=== PATIENT | female | born 1945 | race Caucasian/White ===

== ENCOUNTER 2017-06-25 09:04 | Inpatient (IN) | payer MEDICARE, MEDICAID, SELFPAY ==
[2017-06-25] VITALS (11 sets, daily range): BP systolic 104–159; BP diastolic 49–85; PULSE 53–75; RESP 14–17; TEMP 36.2–37.3; O2SAT 93–97; BMI 35.1
[2017-06-25] MEDS: Celecoxib 200 MG Capsule 400 MG PO (10:01)
[2017-06-25] MEDS: Acetaminophen 500 MG Tablet 1000 MG PO ×3 (10:02→21:47)
[2017-06-25] MEDS: oxyCODONE HCl Cr 10 MG Tablet PO (10:02)
[2017-06-25 10:10] LABS: Thyroid Stim Hormone (TSH) 3.12 uIU/mL (0.358-3.74)
[2017-06-25] MEDS: Cefazolin 2 GM in 0.9% Normal Saline 100 ML IV (11:17)
[2017-06-25 12:50] LABS: M R Staph aureus DNA By PCR Negative (Negative); Probe Check PASS; Specimen Processing Control PASS
--- NOTE | 2017-06-25 13:04 | RAD_ITS ---
STUDY: X-RAY - LEFT KNEE REASON FOR EXAM: Female, 71 years old. Post op. TECHNIQUE: 2 views of the knee. COMPARISON: None. FINDINGS: Normal density of the visualized distal femur. Normal density of the visualized proximal tibia and fibula. Normal proximal tibiofibular articulation. There is no demonstrated fracture. The patient has undergone a left total knee arthroplasty. Metal prostheses overlying the femoral condyles and tibial plateau appear well seated, and in anatomic alignment. There is irregularity along the posterior aspect of the patella related to a radiolucent prosthesis at that site. Gas lucencies in the peripatellar tissues are consistent with the recent surgery. There are numerous metal skin howie along the anterior midline. RAD/Knee 1 or 2 Views IMPRESSION: Status post left total knee arthroplasty. Electronically Signed: Helio Bailey MD at 17:37 EST , Service support ,
[2017-06-25] MEDS: Scopolamine 1mg/72hr Patch 1 PATCH TD (13:56)
[2017-06-25] MEDS: Lactated Ringers 1,000 ML 999 ML IV (14:29)
--- NOTE | 2017-06-25 15:35 | PCM.OPRPT ---
Report of Operation Date of Procedure: 06/25/17 Pre-Operative Diagnosis: Left knee primary osteoarthritis Post-Operative Diagnosis: Left knee primary osteoarthritis Surgery/Procedure Performed:: Left total knee replacement, cruciate retaining Description of Surgical Findings:: We will knee with good patella tracking professor of food biochemistry: Víctor Vásquez Type of Anesthesia:: Spinal Anesthesiologist: Tima Ruiz Special Medications: 2 g Ancef, 1 g TXA at incision, 1 g TXA closure, 10 mg Decadron, joint cocktail (5 mg Duramorph, 30 mL of 0.5% Ropivicaine, 1000 units of epinephrine, 30 mg of Toradol) Specimen's removed: Bony cuts Estimated Blood Loss (mL): 30 mL Fluids Replaced: 1300 mL crystalloid Description of Procedure: Implants used: 1. Superior size 3 triathlon cruciate retaining distal femoral component 2. Carlin size 3 universal tibial baseplate 3. Carlin X3 11 mm CS polyethylene 4. Carlin X3 29 mm asymmetric patella Brief history operative indications: 71-year-old f with history of left knee osteoarthritis with radiographic findings with loss of joint space, osteophyte formation and subchondral sclerosis. Failed conservative measures as mentioned in the H&P. Discussion of total knee arthroplasty as well as risk and benefits were discussed the patient including but not limited to blood loss, DVTs, PEs, neurovascular damage, general risk of anesthesia including loss of life, and stiffness or instability were discussed with patient. Patient demonstrated understanding and was able to sign informed consent. Procedure: On the date of procedure patient's left lower extremity was marked in the preoperative area. The patient was then taken back to the operating room where the patient was placed on the table in the supine position. All bony prominences were identified a well-padded. Anesthesia assumed control of the C-spine and airway and remained controlled throughout the remainder of the procedure. A tourniquet was placed on the left upper thigh and the leg was prepped in a sterile fashion. The surgeon then scrubbed at this time .Upon reentering the room left lower extremity was draped in a standard orthopedic fashion. A timeout was then called and everyone agreed upon the side, the site, the procedure to be performed, patient's identity and antibiotics given. Esmarch bandage was used to exsanguinate the extremity and the tourniquet was placed up to 250 mmHg with the knee in flexion. A midline skin incision was made and sharp dissection was taken down through skin subcutaneous tissue and fat. The standard medial parapatellar incision was made and the patella was subluxed laterally. The standard deep MCL release was done and the fat pad was resected. Next our attention was directed to the femur. Navigation pins were placed, navigation was registered. The distal femoral cutting block was pinned into place and 9 mm of distal femur resection was completed. The distal femoral cut was verified with navigation. The knee was then placed in deep flexion in the standard [email or web address] sizing guide was used to place the femoral component in 3? external rotation based on the posterior condyles. A size 3 4-in-1 cutting block was selected and pinned into place. The anterior cut was then made and checked for notching. The subsequent anterior chamfer cuts, posterior condylar cuts and posterior chamfer cuts were made while ensuring the MCL and LCL were protected. Our attention was then turned to the tibia where the navigation pins were placed, navigation was registered. [employer] tibial cutting guide was used to make the appropriate tibial cut 90 degrees from the mechanical axis. Navigation was then used to verify the cut. A size 3 tibial base plate was selected. the knee was flexed to 90 degrees and the soft tissues and posterior osteophytes were removed from the joint. 40 cc of the periarticular injection was injected into the posterior medial corner of the joint. The appropriate trials were then placed on the femur and tibia. A trial polyethylene was trialed to ensure proper balancing and stability of the knee. Patella tracking, was then verified and corrected appropriately as needed. The appropriate tibial internal rotation was then marked with a bovie. Our attention was then directed to the patella. The patella was everted and a flat resection was made. The lug holes were drilled and the patella trial was placed. Patellar tracking was checked and deemed appropriate. Once we were happy lug holes were drilled for the femur and trial components were removed. the tibia was subluxed and pinned into place and the keel was punched and the canal was reamed. Final components were verified and opened, and cement was mixed in a vacuum. Superior Simplex cement was used. The wound was copiously irrigated with normal saline. When the cement was ready the components were cemented into place starting with the tibia, femur and finally the patella. The trial poly component was placed and the knee was placed in full extension. All excess cement was removed in the process. Once the cement had cured the tracking, alignment and balance were verified and a size 11 mm polyethylene component was placed. Once the final components were placed the wound was copiously irrigated with normal saline solution and the periarticular injection was given. The wound was closed in a layer tang fashion using #1 vicryl interrupted sutures for the arthrotomy, 2-0 interrupted Vicryl suture for the subcuticular layer and howie for final skin closure. A sterile compressive dressing was then placed. The patient was then awakened from anesthesia, transferred to the [facility] and transferred to the PACU for recovery. Post op plan DVT ppx: ASA 325mg, thigh high compression stockings Follow up: in office in 2 weeks for wound check PT: to start POD #0 at hospital, outpatient PT should be arranged My physician assistant pressman was a vital part of this case. He was important in appropriate retraction during the case, and protection of soft tissues during bony cuts. His intimate knowledge of the case and my steps aided in safe and expedient completion of the procedure as well as appropriate position of the leg during the case. He was also vital in assisting with closure under my direct supervision. Grafts/Implants Used: Carlin triathlon total knee - Complications None - Admit VTE Documentation VTE Present on Admission: No VTE Mechan Device Prophylaxis: SCD's, Thigh High SEBAS Hose VTE Pharm Prophylaxis ordered?: Yes
--- NOTE | 2017-06-25 15:38 | OP.PCM_ITS ---
Report of Operation Date of Procedure: 06/25/17 Pre-Operative Diagnosis: Left knee primary osteoarthritis Post-Operative Diagnosis: Left knee primary osteoarthritis Surgery/Procedure Performed:: Left total knee replacement, cruciate retaining Description of Surgical Findings:: We will knee with good patella tracking anesthesiology physician: Víctor Vásquez Type of Anesthesia:: Spinal Anesthesiologist: Tima Ruiz Special Medications: 2 g Ancef, 1 g TXA at incision, 1 g TXA closure, 10 mg Decadron, joint cocktail (5 mg Duramorph, 30 mL of 0.5% Ropivicaine, 1000 units of epinephrine, 30 mg of Toradol) Specimen's removed: Bony cuts Estimated Blood Loss (mL): 30 mL Fluids Replaced: 1300 mL crystalloid Description of Procedure: Implants used: 1. Elaine size 3 triathlon cruciate retaining distal femoral component 2. Carlin size 3 universal tibial baseplate 3. Carlin X3 11 mm CS polyethylene 4. Carlin X3 29 mm asymmetric patella Brief history operative indications: 71-year-old f with history of left knee osteoarthritis with radiographic findings with loss of joint space, osteophyte formation and subchondral sclerosis. Failed conservative measures as mentioned in the H&P. Discussion of total knee arthroplasty as well as risk and benefits were discussed the patient including but not limited to blood loss, DVTs, PEs, neurovascular damage , general risk of anesthesia including loss of life, and stiffness or instability were discussed with patient. Patient demonstrated understanding and was able to sign informed consent. Procedure: On the date of procedure patient's left lower extremity was marked in the preoperative area. The patient was then taken back to the operating room where the patient was placed on the table in the supine position. All bony prominences were identified a well-padded. Anesthesia assumed control of the C- spine and airway and remained controlled throughout the remainder of the procedure. A tourniquet was placed on the left upper thigh and the leg was prepped in a sterile fashion. The surgeon then scrubbed at this time .Upon reentering the room left lower extremity was draped in a standard orthopedic fashion. A timeout was then called and everyone agreed upon the side, the site, the procedure to be performed, patient's identity and antibiotics given. Esmarch bandage was used to exsanguinate the extremity and the tourniquet was placed up to 250 mmHg with the knee in flexion. A midline skin incision was made and sharp dissection was taken down through skin subcutaneous tissue and fat. The standard medial parapatellar incision was made and the patella was subluxed laterally. The standard deep MCL release was done and the fat pad was resected. Next our attention was directed to the femur. Navigation pins were placed, navigation was registered. The distal femoral cutting block was pinned into place and 9 mm of distal femur resection was completed. The distal femoral cut was verified with navigation. The knee was then placed in deep flexion in the standard [employer] sizing guide was used to place the femoral component in 3? external rotation based on the posterior condyles. A size 3 4-in-1 cutting block was selected and pinned into place. The anterior cut was then made and checked for notching. The subsequent anterior chamfer cuts, posterior condylar cuts and posterior chamfer cuts were made while ensuring the MCL and LCL were protected. Our attention was then turned to the tibia where the navigation pins were placed , navigation was registered. [employer] tibial cutting guide was used to make the appropriate tibial cut 90 degrees from the mechanical axis. Navigation was then used to verify the cut. A size 3 tibial base plate was selected. the knee was flexed to 90 degrees and the soft tissues and posterior osteophytes were removed from the joint. 40 cc of the periarticular injection was injected into the posterior medial corner of the joint. The appropriate trials were then placed on the femur and tibia. A trial polyethylene was trialed to ensure proper balancing and stability of the knee. Patella tracking, was then verified and corrected appropriately as needed. The appropriate tibial internal rotation was then marked with a bovie. Our attention was then directed to the patella. The patella was everted and a flat resection was made. The lug holes were drilled and the patella trial was placed. Patellar tracking was checked and deemed appropriate. Once we were happy lug holes were drilled for the femur and trial components were removed. the tibia was subluxed and pinned into place and the keel was punched and the canal was reamed. Final components were verified and opened, and cement was mixed in a vacuum. [employer] cement was used. The wound was copiously irrigated with normal saline. When the cement was ready the components were cemented into place starting with the tibia, femur and finally the patella. The trial poly component was placed and the knee was placed in full extension. All excess cement was removed in the process. Once the cement had cured the tracking, alignment and balance were verified and a size 11 mm polyethylene component was placed. Once the final components were placed the wound was copiously irrigated with normal saline solution and the periarticular injection was given. The wound was closed in a layer tang fashion using #1 vicryl interrupted sutures for the arthrotomy, 2-0 interrupted Vicryl suture for the subcuticular layer and howie for final skin closure. A sterile compressive dressing was then placed. The patient was then awakened from anesthesia, transferred to the [facility] and transferred to the PACU for recovery. Post op plan DVT ppx: ASA 325mg, thigh high compression stockings Follow up: in office in 2 weeks for wound check PT: to start POD #0 at hospital, outpatient PT should be arranged My physician executive staff assistant was a vital part of this case. He was important in appropriate retraction during the case, and protection of soft tissues during bony cuts. His intimate knowledge of the case and my steps aided in safe and expedient completion of the procedure as well as appropriate position of the leg during the case. He was also vital in assisting with closure under my direct supervision. Grafts/Implants Used: Elaine triathlon total knee - Complications None - Admit VTE Documentation VTE Present on Admission: No VTE Mechan Device Prophylaxis: SCD's, Thigh High SEBAS Hose VTE Pharm Prophylaxis ordered?: Yes
--- NOTE | 2017-06-25 16:32 | PCM.PROGNOTE ---
Subjective: Patient seen and examined. Resting in room in no acute distress. Patient underwent left total knee replacement due to osteoarthritis with Dr. Mattson. Hospitalist services consulted for medical management. Patient currently complains of pain 7 out of 10. Nurse in room administering pain medication. Patient has a history of right hip fracture requiring surgical intervention. She was discharged at that time (03/2016) to SNF and currently resides at [facility]. Her other past medical history includes hyperthyroidism, hyperlipidemia, depression, anxiety disorder, GERD. Patient's vitals are stable postoperatively. Oxygen stable on room air. Sensory intact to right lower extremity. Patient denies nausea, vomiting. Denies other complaints besides left lower extremity pain. - Physical Exam General: Alert, Oriented x3, Cooperative, No apparent distress HEENT: Atraumatic, PERRLA, EOMI, Normocephalic Neck: Supple, No JVD, Negative Carotid Bruits Lungs: Clear to auscultation, Diminished Cardiovascular: Regular rate, Regular Rhythm, Normal S1, Normal S2, No murmurs Abdomen: Bowel Sounds Present, Soft, Non Tender, Non-Distended Extremities: No clubbing, No cyanosis, No edema, Capillary Refill Less than 3 Seconds Skin: No rashes, No breakdown, - - Left lower extremity postop dressing intact Musculoskeletal: No Tenderness to Palpation of Joints or Extremities Neurological: Cranial nerves II-XII grossly intact, Neuro grossly intact Psych/Mental Status: Appropriate, Flat Affect Vital Signs Temp Pulse Resp BP Pulse Ox 97.3 F L 64 16 144/70 H 96 06/25/17 15:27 06/25/17 15:27 06/25/17 15:27 06/25/17 15:27 06/25/17 15:27 Oxygen Delivery Method Room Air Weight: 78.925 kg Body Mass Index (BMI) 35.1 Finger Stick Blood Glucose 150 Intake and Output for Last 24 Hours 06/23/17 06/24/17 06/25/17 23:59 23:59 23:59 Intake Total 1999 Balance 1999 Laboratory Tests Past 24 Hrs 06/25/17 06/25/17 09:40 09:40 TSH 3.12 MRSA (PCR) Negative Assessment/Plan 1. Status post right total knee arthroplasty secondary to osteoarthritis-surgery by Dr. Mattson 06/25/17. PT/OT. Continue PRN pain regimen. Patient has history of right hip fracture requiring surgical intervention. Continue calcium/vitamin D supplementation. Continue aspirin 325 p.o. twice daily. Monitor CBC. Incentive spirometer. 2. Hyperthyroidism- Continue PTU regimen. TSH 3.1. 3. Hyperlipidemia-continue statin. 4. Depression/anxiety-continue home bupropion, alprazolam, Seroquel regimen, Cymbalta. 5. GERD-continue famotidine. DVT prophylaxis-SCDs. Aspirin 325 p.o. twice daily. This patient was seen by TOD Stahl under the supervision of Dr. Lee.
[2017-06-25] MEDS: oxyCODONE 5 MG Tablet PO ×2 (16:38→21:47)
[2017-06-25] MEDS: Lactated Ringers 1,000 ML 125 ML IV ×2 (16:39→21:52)
--- NOTE | 2017-06-25 16:39 | PN_ITS ---
Subjective: Patient seen and examined. Resting in room in no acute distress. Patient underwent left total knee replacement due to osteoarthritis with Dr. Mattson. Hospitalist services consulted for medical management. Patient currently complains of pain 7 out of 10. Nurse in room administering pain medication. Patient has a history of right hip fracture requiring surgical intervention. She was discharged at that time (03/2016) to SNF and currently resides at [facility]. Her other past medical history includes hyperthyroidism, hyperlipidemia, depression, anxiety disorder, GERD. Patient's vitals are stable postoperatively. Oxygen stable on room air. Sensory intact to right lower extremity. Patient denies nausea, vomiting. Denies other complaints besides left lower extremity pain. - Physical Exam General: Alert, Oriented x3, Cooperative, No apparent distress HEENT: Atraumatic, PERRLA, EOMI, Normocephalic Neck: Supple, No JVD, Negative Carotid Bruits Lungs: Clear to auscultation, Diminished Cardiovascular: Regular rate, Regular Rhythm, Normal S1, Normal S2, No murmurs Abdomen: Bowel Sounds Present, Soft, Non Tender, Non-Distended Extremities: No clubbing, No cyanosis, No edema, Capillary Refill Less than 3 Seconds Skin: No rashes, No breakdown, - - Left lower extremity postop dressing intact Musculoskeletal: No Tenderness to Palpation of Joints or Extremities Neurological: Cranial nerves II-XII grossly intact, Neuro grossly intact Psych/Mental Status: Appropriate, Flat Affect Vital Signs Temp Pulse Resp BP Pulse Ox 97.3 F L 64 16 144/70 H 96 06/25/17 15:27 06/25/17 15:27 06/25/17 15:27 06/25/17 15:27 06/25/17 15:27 Oxygen Delivery Method Room Air Weight: 78.925 kg Body Mass Index (BMI) 35.1 Finger Stick Blood Glucose 150 Intake and Output for Last 24 Hours 06/23/17 06/24/17 06/25/17 23:59 23:59 23:59 Intake Total 1999 Balance 1999 Laboratory Tests Past 24 Hrs 06/25/17 06/25/17 09:40 09:40 TSH 3.12 MRSA (PCR) Negative Assessment/Plan 1. Status post right total knee arthroplasty secondary to osteoarthritis- surgery by Dr. Mattson 06/25/17. PT/OT. Continue PRN pain regimen. Patient has history of right hip fracture requiring surgical intervention. Continue calcium /vitamin D supplementation. Continue aspirin 325 p.o. twice daily. Monitor CBC. Incentive spirometer. 2. Hyperthyroidism- Continue PTU regimen. TSH 3.1. 3. Hyperlipidemia-continue statin. 4. Depression/anxiety-continue home bupropion, alprazolam, Seroquel regimen, Cymbalta. 5. GERD-continue famotidine. DVT prophylaxis-SCDs. Aspirin 325 p.o. twice daily. This patient was seen by TOD Stahl under the supervision of Dr. Lee.
[2017-06-25] MEDS: Aspirin 325 MG Tablet PO (16:40)
[2017-06-25] MEDS: Cefazolin 1 GM/50 ML BAG IV (18:59)
[2017-06-25] MEDS: Senna/Docusate Sodium 1 Tablet 2 TABLET PO (21:47)
[2017-06-25] MEDS: Atorvastatin Calcium 40 MG Tablet PO (21:47)
[2017-06-25] MEDS: QUEtiapine 100 MG Tablet PO (21:47)
[2017-06-25] MEDS: ALPRAZolam 0.5 MG Tablet PO (21:48)
[2017-06-26] MEDS: Cefazolin 1 GM/50 ML BAG IV (03:38)
[2017-06-26] MEDS: oxyCODONE 5 MG Tablet PO ×5 (03:42→23:05)
[2017-06-26 05:00] VITALS: BP 133/80; PULSE 57; RESP 16; TEMP 37; O2SAT 95
[2017-06-26] MEDS: Acetaminophen 500 MG Tablet 1000 MG PO ×3 (06:40→21:00)
[2017-06-26 06:54] LABS: Hematocrit 35.7 % (37-47); Hemoglobin 11.3 g/dl (12.0-15.0); Mean Corp Hgb Conc 31.7 g/gl (32-36); Mean Corpuscular Hgb 30.6 pg (27.0-32.0); Mean Corpuscular Volume 96.7 fL (81-99); Mean Platelet Vol. 9.8 fl (6.2-12.0); Platelet Count 249 K/mm3 (150-450); RBC Distribution Width CV 13.7 % (11.6-14.6); RBC Distribution Width SD 46.9 fl (35.1-43.9); Red Blood Count 3.69 M/mm3 (4.2-5.4); Scan Indicated on CBC? Y/N NO
[2017-06-26 07:05] LABS: Anion Gap 10 (5-15); BUN 17 mg/dL (7-18); BUN/Creat Ratio 19.7 RATIO (10-20); Calcium,Total 8.7 mg/dL (8.5-10.1); Chloride 110 mmol/L (98-107); Creatinine, Serum 0.86 mg/dL (0.55-1.02); EST Glomerular Filtration Rate 69 mL/min (>60); Est Glom Filt Rate - Afr Amer 83 mL/min (>60); Estimated Creatinine Clearance 73.67 ml/min; Glucose 126 mg/dL (74-106); Potassium 4.7 mmol/L (3.5-5.1); Sodium Level 144 mmol/L (136-145)
--- NOTE | 2017-06-26 08:03 | PN_ITS ---
Subjective: Follow-up status post knee surgery: It was seen and examined. No acute events overnight. Complains of extreme anxiety. States she is on Xanax. Feels anxiety is not controlled. DEnies no shortness of breath or dizziness or chills. She rates her pain at 7 out of 10. Rest of review of systems was negative. Vitals/I&O's: Vital Signs Temp Pulse Resp BP Pulse Ox 98.6 F 57 L 16 133/80 H 95 06/26/17 05:00 06/26/17 05:00 06/26/17 05:00 06/26/17 05:00 06/26/17 05:00 Oxygen Delivery Method Room Air Weight: 78.925 kg Body Mass Index (BMI) 35.1 Finger Stick Blood Glucose 150 Intake and Output for Last 24 Hours 06/24/17 06/25/17 06/26/17 23:59 23:59 23:59 Intake Total 3087 / 3087 1580 / 1580 Output Total 1000 / 1000 900 / 900 Balance 2087 / 2087 680 / 680 General: Alert, Oriented x3, Cooperative, No apparent distress HEENT: Atraumatic, PERRLA, EOMI, Normocephalic Oral: Moist Mucosa Neck: Supple, Negative Carotid Bruits Lungs: Clear to auscultation, Normal air movement Cardiovascular: Regular rate, Regular Rhythm, Normal S1, Normal S2, No murmurs Abdomen: Bowel Sounds Present, Soft, Non Tender, Non-Distended, No Hepato- splenomegaly Extremities: No edema, - - Cooling wrap to the left knee Skin: No rashes, No breakdown Musculoskeletal: No Tenderness to Palpation of Joints or Extremities Neurological: Cranial nerves II-XII grossly intact Psych/Mental Status: Normal Affect, Appropriate Laboratory Results 06/25/17 09:40: TSH 3.12 06/25/17 09:40: MRSA (PCR) Negative 06/26/17 06:35: WBC 9.0, RBC 3.69 L, Hgb 11.3 L, Hct 35.7 L, MCV 96.7, MCH 30.6 , MCHC 31.7 L, RDW 13.7, RDW Differential 46.9 H, Plt Count 249, MPV 9.8 06/26/17 06:35: Sodium 144, Potassium 4.7, Chloride 110 H, Carbon Dioxide 24.0, Anion Gap 10, BUN 17, Creatinine 0.86, Estim Creat Clear Calc 73.67, Est GFR ( MDRD) Af Amer 83, Est GFR (MDRD) Non-Af 69, BUN/Creatinine Ratio 19.7, Glucose 126 H, Calcium 8.7 Current Medications Acetaminophen (Tylenol) 1,000 mg PO Q8 [facility] Last Admin: 06/26/17 06:40 Dose: 1,000 mg Al Hydroxide/Mg Hydroxide (Mylanta Ii) 30 ml PO Q4H PRN PRN PRN Reason: gastric distress Alprazolam (Xanax) 0.5 mg PO BID [facility] Last Admin: 06/25/17 21:48 Dose: 0.5 mg [facility]) [facility] Last Admin: 06/25/17 16:40 Dose: 325 mg Atorvastatin Calcium (Lipitor) 40 mg PO QHS [facility] Last Admin: 06/25/17 21:47 Dose: 40 mg Bupropion HCl (Wellbutrin Sr) 150 mg PO DAILY [facility] Bupropion HCl (Wellbutrin Sr) 200 mg PO QHS [facility] Last Admin: 06/25/17 21:46 Dose: 200 mg Calcium Carbonate (Os-Gokul 500) 1,000 mg PO DAILY@0800 [facility] Cholecalciferol (Vitamin D) 2,[facility] Duloxetine HCl (Cymbalta) 60 mg PO DAILY [facility] Famotidine (Pepcid) 20 mg PO DAILY [facility] Furosemide (Lasix) 40 mg PO DAILY [facility] Ketorolac Tromethamine (Toradol) 15 mg IV Q6H PRN PRN PRN Reason: MILD-MOD PAIN (1-5/10) Morphine Sulfate (Morphine) 2 - 4 mg IV Q2H PRN PRN PRN Reason: SEVERE PAIN (6-10/10) Last Admin: 06/25/17 15:38 Dose: 2 mg Nutritional Formula (Lactose Free) (Ensure Clear) 120 ml PO TIDCM [facility] Last Admin: 06/25/17 16:44 Dose: 120 ml Ondansetron HCl (Zofran) 4 mg IV Q8H PRN PRN PRN Reason: NAUSEA Oxycodone HCl (Oxyir) 5 - 10 mg PO Q4H PRN PRN PRN Reason: MOD-SEVERE PAIN (4-10/10) Last Admin: 06/26/17 03:42 Dose: 10 mg Polyethylene Glycol (Miralax) 17 gm PO DAILY [facility] Promethazine HCl (Phenergan (Ll)) 12.5 mg IM Q6H PRN PRN; Protocol PRN Reason: NAUSEA/VOMITING Propylthiouracil (Propylthiouracil, Ptu) 100 mg PO BID [facility] Last Admin: 06/25/17 21:47 Dose: 100 mg Quetiapine Fumarate (Seroquel) 100 mg PO BID [facility] Last Admin: 06/25/17 21:47 Dose: 100 mg Senna/Docusate Sodium (Senokot-S, Poppy-Colace) 2 tablet PO BID [facility] Last Admin: 06/25/17 21:47 Dose: 2 tablet Sodium Chloride () 5 - 30 ml IV UD PRN PRN Reason: SALINE FLUSH Assessment/Plan 1. Status post right total knee arthroplasty, POD #1, pain is fairly controlled , on morphine and oxycodone no active management by orthopedics, PT and OT to evaluate and treat. 2. Hyperthyroidism, on PTU 3. Hyperlipidemia, on statin. 4. Depression/anxiety, on home bupropion, alprazolam, Seroquel regimen, Cymbalta. 5. GERD on famotidine. 6. DVT prophylaxis -Aspirin 325 p.o. twice daily. Code Visit Inpatient E&M: 05897 [facility] Hosp L2
[2017-06-26 08:37] VITALS: BP 97/51; PULSE 63; RESP 18; TEMP 37.3; O2SAT 100
[2017-06-26] MEDS: Calcium (Elemental) 500 MG Tablet 1000 MG PO (08:42)
[2017-06-26] MEDS: Furosemide 40 MG Tablet PO (08:43)
[2017-06-26] MEDS: Aspirin 325 MG Tablet PO ×2 (08:43→17:15)
[2017-06-26] MEDS: Senna/Docusate Sodium 1 Tablet 2 TABLET PO ×2 (08:44→20:59)
[2017-06-26] MEDS: DULoxetine Hcl 60 MG Capsule PO (08:44)
[2017-06-26] MEDS: Famotidine 20 MG Tablet PO (08:44)
[2017-06-26] MEDS: Polyethylene Glycol 3350 17 GM PACKET PO (08:44)
[2017-06-26] MEDS: QUEtiapine 100 MG Tablet PO ×2 (08:49→21:00)
[2017-06-26] MEDS: ALPRAZolam 0.5 MG Tablet PO ×2 (08:49→21:01)
[2017-06-26] MEDS: 0.9% NaCl Peripheral Flush Adult/Peds IV (08:56)
--- NOTE | 2017-06-26 10:06 | PCM.PN.ORT ---
Subjective: The patient was sitting in chair upon examination. Patient denies any chest pain, shortness of breath, dizziness, lightheadedness, nausea or vomiting, or calf pain. No adverse overnight events. Patient states she has increased pain in the left knee. Patient reports her pain is 7 out of 10 currently. When she takes her pain medications it goes down to a 3-4 out of 10. Patient currently resides at [facility] in [facility]. She is wishing to go to [facility]. Objective: Vital signs stable and afebrile. Last blood pressure reading was 97/51. Patient is able to plantarflex and dorsiflex actively. Sensation is intact to light touch to saphenous, sural, superficial and deep peroneal, and tibial distribution. Dressing is clean dry and intact. Distal dressing with minimal drainage Negative Homans bilaterally, negative signs and symptoms of DVT. - Physical Exam General: Alert, Oriented x3, Cooperative, No apparent distress Vital Signs Temp Pulse Resp BP Pulse Ox 99.1 F 63 18 97/51 L 100 06/26/17 08:37 06/26/17 08:37 06/26/17 08:37 06/26/17 08:37 06/26/17 08:37 Oxygen Delivery Method Room Air Weight: 78.925 kg Body Mass Index (BMI) 35.1 Finger Stick Blood Glucose 150 Intake and Output for Last 24 Hours 06/24/17 06/25/17 06/26/17 23:59 23:59 23:59 Intake Total 3087 / 3087 1580 / 1580 Output Total 1000 / 1000 900 / 900 Balance 2087 / 2087 680 / 680 Laboratory Tests Past 24 Hrs 06/25/17 06/25/17 06/26/17 09:40 09:40 06:35 WBC 9.0 RBC 3.69 L Hgb 11.3 L Hct 35.7 L MCV 96.7 MCH 30.6 MCHC 31.7 L RDW 13.7 RDW Differential 46.9 H Plt Count 249 MPV 9.8 Sodium Potassium Chloride Carbon Dioxide Anion Gap BUN Creatinine Estim Creat Clear Calc Est GFR (MDRD) Af Amer Est GFR (MDRD) Non-Af BUN/Creatinine Ratio Glucose Calcium TSH 3.12 MRSA (PCR) Negative 06/26/17 06:35 WBC RBC Hgb Hct MCV MCH MCHC RDW RDW Differential Plt Count MPV Sodium 144 Potassium 4.7 Chloride 110 H Carbon Dioxide 24.0 Anion Gap 10 BUN 17 Creatinine 0.86 Estim Creat Clear Calc 73.67 Est GFR (MDRD) Af Amer 83 Est GFR (MDRD) Non-Af 69 BUN/Creatinine Ratio 19.7 Glucose 126 H Calcium 8.7 TSH MRSA (PCR) Assessment/Plan 1. S/P left total knee arthroplasty POD #1 2. Continue Pain Medications: Tylenol and OxyIR. Patient was wanting stronger pain medication however upon discussing with her the oxycodone brings her pain levels down to a 4 out of 10. Due to patient's low blood pressure I do not recommend giving any MS Contin at this time. 3. DVT Prophylaxis: Aspirin 325 mg twice daily 4. PT/OT: Weightbearing as tolerated 5. H & H: 11.3/35.7, asymptomatic 6. Encouraged Incentive Spirometry 7. Continue postoperative medical management per medicine 8. Disposition: Plan is for patient to go to correction facility. She currently resides at [facility] but wishes to go to a different facility at this time. She is requesting [facility]. Case management is involved in assisting with placement.
--- NOTE | 2017-06-26 10:09 | PN.ORTHO_ITS ---
Subjective: The patient was sitting in chair upon examination. Patient denies any chest pain, shortness of breath, dizziness, lightheadedness, nausea or vomiting, or calf pain. No adverse overnight events. Patient states she has increased pain in the left knee. Patient reports her pain is 7 out of 10 currently. When she takes her pain medications it goes down to a 3-4 out of 10. Patient currently resides at [facility] in [facility]. She is wishing to go to [facility]. Objective: Vital signs stable and afebrile. Last blood pressure reading was 97/51. Patient is able to plantarflex and dorsiflex actively. Sensation is intact to light touch to saphenous, sural, superficial and deep peroneal, and tibial distribution. Dressing is clean dry and intact. Distal dressing with minimal drainage Negative Homans bilaterally, negative signs and symptoms of DVT. - Physical Exam General: Alert, Oriented x3, Cooperative, No apparent distress Vital Signs Temp Pulse Resp BP Pulse Ox 99.1 F 63 18 97/51 L 100 06/26/17 08:37 06/26/17 08:37 06/26/17 08:37 06/26/17 08:37 06/26/17 08:37 Oxygen Delivery Method Room Air Weight: 78.925 kg Body Mass Index (BMI) 35.1 Finger Stick Blood Glucose 150 Intake and Output for Last 24 Hours 06/24/17 06/25/17 06/26/17 23:59 23:59 23:59 Intake Total 3087 / 3087 1580 / 1580 Output Total 1000 / 1000 900 / 900 Balance 2087 / 2087 680 / 680 Laboratory Tests Past 24 Hrs 06/25/17 06/25/17 06/26/17 09:40 09:40 06:35 WBC 9.0 RBC 3.69 L Hgb 11.3 L Hct 35.7 L MCV 96.7 MCH 30.6 MCHC 31.7 L RDW 13.7 RDW Differential 46.9 H Plt Count 249 MPV 9.8 Sodium Potassium Chloride Carbon Dioxide Anion Gap BUN Creatinine Estim Creat Clear Calc Est GFR (MDRD) Af Amer Est GFR (MDRD) Non-Af BUN/Creatinine Ratio Glucose Calcium TSH 3.12 MRSA (PCR) Negative 06/26/17 06:35 WBC RBC Hgb Hct MCV MCH MCHC RDW RDW Differential Plt Count MPV Sodium 144 Potassium 4.7 Chloride 110 H Carbon Dioxide 24.0 Anion Gap 10 BUN 17 Creatinine 0.86 Estim Creat Clear Calc 73.67 Est GFR (MDRD) Af Amer 83 Est GFR (MDRD) Non-Af 69 BUN/Creatinine Ratio 19.7 Glucose 126 H Calcium 8.7 TSH MRSA (PCR) Assessment/Plan 1. S/P left total knee arthroplasty POD #1 2. Continue Pain Medications: Tylenol and OxyIR. Patient was wanting stronger pain medication however upon discussing with her the oxycodone brings her pain levels down to a 4 out of 10. Due to patient's low blood pressure I do not recommend giving any MS Contin at this time. 3. DVT Prophylaxis: Aspirin 325 mg twice daily 4. PT/OT: Weightbearing as tolerated 5. H & H: 11.3/35.7, asymptomatic 6. Encouraged Incentive Spirometry 7. Continue postoperative medical management per medicine 8. Disposition: Plan is for patient to go to assisted facility. She currently resides at [facility] but wishes to go to a different facility at this time. She is requesting [facility]. Case management is involved in assisting with placement.
--- NOTE | 2017-06-26 11:00 | CASEMGMT ---
Social Work Note Updated by Carolina Vásquez PA-C, that pt is requesting to go to [facility] although she came from [place]. Reviewed pt's chart and she requests to go to a new facility each admission. In 03/2016 when she fractured her hip she went to [facility], and then came in for a joint replacement and August and went to [place] and now is here requesting [facility]. Placed call to [facility] and confirmed that the pt is on her Medicaid at [facility]. Placed call to [facility] who does not have beds and will not have any in the immediate future. Discuss this with pt and she states that her friend Roberto spoke with them. Again informed the pt that SW just got off the phone with admission and there is not availability. Inquire if she would like SW to fax additional referrals and she states that she is not familiar with the other facilities. Inquire what she does not like about [facility]. Pt complains that her bed is too close to the wall, she is not able to get her walker in between the wall and the bed, and also complains that her roommate has the majority of the room and the way she has to manuever around her recliner is, not good for the knee. Pt has not discussed this with staff at [facility] and encourage her too. Inform pt that she is likely going to be ready for discharge tomorrow and if she does not provide options this date for SW to fax referrals to she will need to return to [place] until they can find her an alternative placement. Requests that SW call her friend Roberto. Placed call and left requesting a return phone call at number provided by pt [[phone]]. Will continue to follow and assist with discharge planning. Benita Lenz, WOOL HAT FLANGER, AUTOMATIC TRANSMISSION MECHANIC
--- NOTE | 2017-06-26 13:02 | CASEMGMT ---
Addendum entered by Benita Lenz 06/26/17 16:04: Social Work Note Provided pt with list of facilities and their ratings as well as availability. Pt states she will review and SW may check back. Checked back with pt approximately 30 minutes after presentation of rating list. Pt's friend, Roberto, present at this time and reviewing list with the pt. Both request that referrals be made to [facility] and [facility]. Inform that SW may not be able to facilitate discharges to either of these facilities by time of discharge and she may need to return to [place] and transfer from there. Understanding expressed. SW to continue to follow and assist with discharge planning. Benita Lenz, CAMILA, LUNCH WAGON OPERATOR Original Note: Social Work Note Call from Roberto stating that he does not know what other facilities to recommend. Inform that SW will discuss with the pt alternative options. CAMILA Guaman, LUNCH WAGON OPERATOR
[2017-06-26 13:47] VITALS: BP 160/62; PULSE 72; RESP 18; TEMP 36.7; O2SAT 97
[2017-06-26 19:48] VITALS: BP 157/81; PULSE 70; RESP 20; TEMP 37; O2SAT 95
[2017-06-26] MEDS: Atorvastatin Calcium 40 MG Tablet PO (20:58)
[2017-06-27 01:48] VITALS: BP 161/64; PULSE 69; RESP 20; TEMP 37.1; O2SAT 96
[2017-06-27] MEDS: Ketorolac 15 MG/ML Vial IV ×2 (01:57→12:02)
[2017-06-27] MEDS: 0.9% NaCl Peripheral Flush Adult/Peds IV ×2 (01:57→06:10)
[2017-06-27] MEDS: oxyCODONE 5 MG Tablet PO ×2 (03:12→08:34)
[2017-06-27] MEDS: Acetaminophen 500 MG Tablet 1000 MG PO ×2 (06:09→14:17)
[2017-06-27 06:48] LABS: Hemoglobin 10.7 g/dl (12.0-15.0); Mean Corp Hgb Conc 31.5 g/gl (32-36); Mean Corpuscular Hgb 30.7 pg (27.0-32.0); Mean Corpuscular Volume 97.4 fL (81-99); Mean Platelet Vol. 10.2 fl (6.2-12.0); Platelet Count 219 K/mm3 (150-450); RBC Distribution Width CV 13.8 % (11.6-14.6); RBC Distribution Width SD 47.4 fl (35.1-43.9); Red Blood Count 3.49 M/mm3 (4.2-5.4); White Blood Count 6.7 K/mm3 (4.4-11.0)
[2017-06-27 06:51] LABS: Scan Indicated on CBC? Y/N NO
[2017-06-27 07:01] LABS: Anion Gap 6 (5-15); BUN 20 mg/dL (7-18); BUN/Creat Ratio 26.9 RATIO (10-20); Calcium,Total 8.6 mg/dL (8.5-10.1); Chloride 107 mmol/L (98-107); Creatinine, Serum 0.74 mg/dL (0.55-1.02); EST Glomerular Filtration Rate 81 mL/min (>60); Est Glom Filt Rate - Afr Amer 99 mL/min (>60); Estimated Creatinine Clearance 63.36 ml/min; Glucose 97 mg/dL (74-106); Potassium 3.8 mmol/L (3.5-5.1); Sodium Level 143 mmol/L (136-145)
--- NOTE | 2017-06-27 08:02 | VDLE_ITS ---
Reason For Study: LEG PAIN AND SWELLING RIGHT LEFT CFV is compressible, spontaneous, phasic, GSV is normal. competent and demonstrates normal CFV is compressible, spontaneous, phasic, augmentation. competent, and demonstrates normal Procedure augmentation. Exam performed portable in patient room. FV is compressible, spontaneous, phasic, A preliminary report was called and/or faxed competent and demonstrates normal to MS3 nurse. augmentation. POP V is compressible, spontaneous, phasic, competent and demonstrates normal augmentation. T/P Trunk is compressible. PTV is compressible. LT PerV is compressible. Interpretation Summary Deep veins of the left lower extremity are patent and compressible segmentally. There is no evidence of left lower extremity deep vein thrombosis. Valvular competence appears intact within the proximal deep venous system on the left . The left greater saphenous vein appears patent and compressible segmentally. Ordering Physician: Kati Lizarraga Referring Physician: Jacob Mattson Performed By: Radha Israel RVT
[2017-06-27 08:20] VITALS: BP 146/67; PULSE 67; RESP 18; TEMP 37; O2SAT 96
[2017-06-27] MEDS: Senna/Docusate Sodium 1 Tablet 2 TABLET PO (08:28)
[2017-06-27] MEDS: DULoxetine Hcl 60 MG Capsule PO (08:28)
[2017-06-27] MEDS: Furosemide 40 MG Tablet PO (08:28)
[2017-06-27] MEDS: Calcium (Elemental) 500 MG Tablet 1000 MG PO (08:28)
[2017-06-27] MEDS: Aspirin 325 MG Tablet PO ×2 (08:28→17:36)
[2017-06-27] MEDS: Polyethylene Glycol 3350 17 GM PACKET PO (08:29)
[2017-06-27] MEDS: Famotidine 20 MG Tablet PO (08:29)
[2017-06-27] MEDS: QUEtiapine 100 MG Tablet PO (08:34)
[2017-06-27] MEDS: ALPRAZolam 0.5 MG Tablet PO (08:34)
--- NOTE | 2017-06-27 10:41 | PN_ITS ---
Subjective: 71-year-old female admitted to the hospital for left TKA on 06/25/[address] Tucker Mattson. Hospitalist consult ordered for medical management. Past medical history is significant for hyperthyroidism-on PTU, hyperlipidemia, depression/anxiety, GERD, OA and obesity. She is afebrile and vital signs are stable. Systolic blood pressure has been mildly elevated since 06/26/2017. She is 96% saturated on room air. Hemoglobin is 10.7 today, down from 11.3 at admission. Electrolytes are within normal limits and the creatinine is 0.74. She is complaining of inability to sleep last night due to pain and cramping in the left calf and thigh. She denies CP, SOB, N/V and abdominal pain - Physical Exam General: Alert, Oriented x3, Cooperative, No apparent distress, Well developed, Well nourished Oral: Moist Mucosa Neck: Supple, No Nodes, No Nuchal Rigidity, Trachea Midline Lungs: Clear to auscultation, Normal air movement Cardiovascular: Regular rate, Regular Rhythm, Normal S1, Normal S2, No murmurs, No Gallop Abdomen: Bowel Sounds Present, Soft, Non Tender Extremities: No edema, - - she has intact sensation to both feet and they are warm to the touch. She has pain in the left calf with palpation and with dorsiflexion on the foot. There is no redness and no increased warmth to touch but she ice on the knee. There is no abnormal bleeding and she has only a few small dots of blood on the bandage. There is swelling of the thigh and the calf Skin: No rashes, No breakdown Musculoskeletal: No Muscle Wasting Neurological: Cranial nerves II-XII grossly intact, Neuro grossly intact Psych/Mental Status: Normal Affect, Appropriate Vital Signs Temp Pulse Resp BP Pulse Ox 98.6 F 67 18 146/67 H 96 06/27/17 08:20 06/27/17 08:20 06/27/17 08:20 06/27/17 08:20 06/27/17 08:20 Oxygen Delivery Method Room Air Weight: 174 lb Body Mass Index (BMI) 35.1 Finger Stick Blood Glucose 150 Intake and Output for Last 24 Hours 06/25/17 06/26/17 06/27/17 23:59 23:59 23:59 Intake Total 3087 / 3087 2940 / 2940 500 / 500 Output Total 1000 / 1000 1300 / 1300 800 / 800 Balance 2087 / 2087 1640 / 1640 -300 / -300 Laboratory Tests Past 24 Hrs 06/27/17 06/27/17 05:40 05:40 WBC 6.7 RBC 3.49 L Hgb 10.7 L Hct 34.0 L MCV 97.4 MCH 30.7 MCHC 31.5 L RDW 13.8 RDW Differential 47.4 H Plt Count 219 MPV 10.2 Sodium 143 Potassium 3.8 Chloride 107 Carbon Dioxide 30.0 Anion Gap 6 BUN 20 H Creatinine 0.74 Estim Creat Clear Calc 63.36 Est GFR (MDRD) Af Amer 99 Est GFR (MDRD) Non-Af 81 BUN/Creatinine Ratio 26.9 H Glucose 97 Calcium 8.6 Assessment/Plan Impressions 1. POD #2 S/P L TKA 2. left calf pain and cramping - US ordered but suspect this is normal and due to the surgery 3. mild HTN - she is on a very large dose of Wellbutrin and this could be contributing to the HTN - long hx of anx/dep so will not decrease the dose. Will add a low dose PAULINO for BP control 4. anx/depression 5. 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 Hyperlipidemia/obesity/GERD complicate care, management, recovery and prognosis OK to discharge from medical standpoint start Lisinopril 2.5 mg daily Code Visit Inpatient E&M: 30125 [facility] Hosp L2
--- NOTE | 2017-06-27 12:45 | PCM.PN.ORT ---
Subjective: The patient was sitting in bed upon examination. Patient denies any chest pain, shortness of breath, dizziness, lightheadedness, nausea or vomiting, or calf pain. Plain of pain in the left knee. Pain is controlled on medications. No adverse overnight events. Doppler ultrasound was ordered due to left calf and left posterior knee pain which preliminary report was negative for DVT. Patient's plan is discharge to a different jail facility other than [facility]. Patient has been in discussion with case management and will be discharged to [facility]. Objective: Vital signs stable and afebrile. Patient is able to plantarflex and dorsiflex actively. Sensation is intact to light touch to saphenous, sural, superficial and deep peroneal, and tibial distribution. Dressing is clean dry and intact. Patient does have some posterior knee pain on the left. Doppler ultrasound was negative. Negative Homans bilaterally, negative signs and symptoms of DVT. - Physical Exam General: Alert, Oriented x3, Cooperative, No apparent distress Vital Signs Temp Pulse Resp BP Pulse Ox 98.6 F 67 18 146/67 H 96 06/27/17 08:20 06/27/17 08:20 06/27/17 08:20 06/27/17 08:20 06/27/17 08:20 Oxygen Delivery Method Room Air Weight: 78.925 kg Body Mass Index (BMI) 35.1 Finger Stick Blood Glucose 150 Intake and Output for Last 24 Hours 06/25/17 06/26/17 06/27/17 23:59 23:59 23:59 Intake Total 3087 / 3087 2940 / 2940 1200 / 1200 Output Total 1000 / 1000 1300 / 1300 1100 / 1100 Balance 2087 / 2087 1640 / 1640 100 / 100 Laboratory Tests Past 24 Hrs 06/27/17 06/27/17 05:40 05:40 WBC 6.7 RBC 3.49 L Hgb 10.7 L Hct 34.0 L MCV 97.4 MCH 30.7 MCHC 31.5 L RDW 13.8 RDW Differential 47.4 H Plt Count 219 MPV 10.2 Sodium 143 Potassium 3.8 Chloride 107 Carbon Dioxide 30.0 Anion Gap 6 BUN 20 H Creatinine 0.74 Estim Creat Clear Calc 63.36 Est GFR (MDRD) Af Amer 99 Est GFR (MDRD) Non-Af 81 BUN/Creatinine Ratio 26.9 H Glucose 97 Calcium 8.6 Assessment/Plan 1. S/P left total knee arthroplasty POD #2 2. Continue Pain Medications: Tylenol and OxyIR. 3. DVT Prophylaxis: Aspirin 325 mg twice daily 4. PT/OT: Weightbearing as tolerated 5. H & H: 10.7/34.0, asymptomatic 6. Encouraged Incentive Spirometry 7. Continue postoperative medical management per medicine 8. Disposition: Orthopedically stable, plan is for discharge [facility] to jail facility. Prescriptions are attached to chart. Patient will follow-up per postop instructions.
--- NOTE | 2017-06-27 12:48 | PN.ORTHO_ITS ---
Subjective: The patient was sitting in bed upon examination. Patient denies any chest pain , shortness of breath, dizziness, lightheadedness, nausea or vomiting, or calf pain. Plain of pain in the left knee. Pain is controlled on medications. No adverse overnight events. Doppler ultrasound was ordered due to left calf and left posterior knee pain which preliminary report was negative for DVT. Patient 's plan is discharge to a different usp facility other than [facility]. Patient has been in discussion with case management and will be discharged to [facility]. Objective: Vital signs stable and afebrile. Patient is able to plantarflex and dorsiflex actively. Sensation is intact to light touch to saphenous, sural, superficial and deep peroneal, and tibial distribution. Dressing is clean dry and intact. Patient does have some posterior knee pain on the left. Doppler ultrasound was negative. Negative Homans bilaterally, negative signs and symptoms of DVT. - Physical Exam General: Alert, Oriented x3, Cooperative, No apparent distress Vital Signs Temp Pulse Resp BP Pulse Ox 98.6 F 67 18 146/67 H 96 06/27/17 08:20 06/27/17 08:20 06/27/17 08:20 06/27/17 08:20 06/27/17 08:20 Oxygen Delivery Method Room Air Weight: 78.925 kg Body Mass Index (BMI) 35.1 Finger Stick Blood Glucose 150 Intake and Output for Last 24 Hours 06/25/17 06/26/17 06/27/17 23:59 23:59 23:59 Intake Total 3087 / 3087 2940 / 2940 1200 / 1200 Output Total 1000 / 1000 1300 / 1300 1100 / 1100 Balance 2087 / 2087 1640 / 1640 100 / 100 Laboratory Tests Past 24 Hrs 06/27/17 06/27/17 05:40 05:40 WBC 6.7 RBC 3.49 L Hgb 10.7 L Hct 34.0 L MCV 97.4 MCH 30.7 MCHC 31.5 L RDW 13.8 RDW Differential 47.4 H Plt Count 219 MPV 10.2 Sodium 143 Potassium 3.8 Chloride 107 Carbon Dioxide 30.0 Anion Gap 6 BUN 20 H Creatinine 0.74 Estim Creat Clear Calc 63.36 Est GFR (MDRD) Af Amer 99 Est GFR (MDRD) Non-Af 81 BUN/Creatinine Ratio 26.9 H Glucose 97 Calcium 8.6 Assessment/Plan 1. S/P left total knee arthroplasty POD #2 2. Continue Pain Medications: Tylenol and OxyIR. 3. DVT Prophylaxis: Aspirin 325 mg twice daily 4. PT/OT: Weightbearing as tolerated 5. H & H: 10.7/34.0, asymptomatic 6. Encouraged Incentive Spirometry 7. Continue postoperative medical management per medicine 8. Disposition: Orthopedically stable, plan is for discharge today to [facility]p facility. Prescriptions are attached to chart. Patient will follow-up per postop instructions.
--- NOTE | 2017-06-27 12:53 | PCM.DC.TKR ---
Discharge Diet: No Restrictions Discharge Activity: May Not Drive May shower in (days): 1 - Turned dressing away from water Ice area for (Minutes): 20 - every hour while awake. Weight Bearing Status: Weight bearing as tolerated Elevate: Operative Extremity Additional Activity Instructions:: Wear elastic stockings for 2 weeks after your surgery. Call your doctor if your incision/area has: Continuous Slow Oozing, Sudden Increased Bleeding, Increased Pain/ Swelling, Increased Redness, Foul Smelling Discharge Call your doctor if you observe: Fever of 101 or Higher, Coldness, Increased Pain, Numbness or Tingling, Change in Color, Calf discomfort, Uncontrolled pain Remove Dressing in (days):: 3 - K to remove on June 30, 2017 Additional Instructions: Please follow [facility]opedic postop instructions DVT prophylaxis: Patient will be on aspirin 325 mg twice daily for the first 2 weeks, at two-week visit will switch over to 81 mg aspirin twice daily for an additional 2 weeks. While on aspirin patient will be taking famotidine for 30 days as prescribed. Allergies/Adverse Reactions: Allergies latex Allergy (Verified 06/23/17 08:46) Unknown quaternium 15 Allergy (Verified 06/23/17 08:46) Rash tetracycline Allergy (Verified 06/23/17 08:46) Rash FRAGRANCE Allergy (Uncoded 06/23/17 08:46) Rash Medications to take at Discharge Atorvastatin Calcium [Lipitor] 40 mg PO QHS 02/03/15 BuPROPion (SR) [Wellbutrin Sr] 150 mg PO DAILY 02/03/15 Propylthiouracil [Propylthiouracil, PTU] 100 mg PO BID 02/03/15 Duloxetine Hcl [Cymbalta] 60 mg PO DAILY 03/12/16 Polyethylene Glycol 3350 [Miralax] 17 gm PO DAILY 03/12/16 Mag Hydrox/Al Hydrox/Simeth [Antacid Liquid] 30 ml PO Q4H PRN PRN 03/18/16 ALPRAZolam [Xanax] 0.5 mg PO BID 08/15/16 Bupropion HCl [Wellbutrin Sr] 200 mg PO QHS 08/15/16 Clobetasol Propionate [Temovate Cream (BKC)] 1 applic TOPICAL BID 08/15/16 Calcium (Elemental) [Os-Gokul 500] 1,000 mg PO DAILY@0800 06/23/17 Cholecalciferol (VIT D3) [Vitamin D3] 2,000 unit PO DAILYCM 06/23/17 Furosemide [Lasix] 40 mg PO DAILY 06/23/17 Quetiapine Fumarate [Seroquel XR] 200 mg PO QHS 06/25/17 Acetaminophen [Tylenol] 1,000 mg PO Q8 #90 tab 06/27/17 Aspirin 325 mg PO BIDCM #30 tab 06/27/17 Famotidine [Pepcid] 20 mg PO DAILY #30 tab 06/27/17 Oxycodone [Oxyir] 5 - 10 mg PO Q4H PRN PRN 7 Days #80 tab 06/27/17 Senna/Docusate Sodium [Senokot-S] 2 tab PO BID #20 tab 06/27/17 The following prescriptions were given: Oxycodone [Oxyir] 5 - 10 mg PO Q4H PRN PRN 7 Days #80 tab PRN Reason: Mod-Severe Pain (-01/28) Acetaminophen [Tylenol] 1,000 mg PO Q8 #90 tab Famotidine [Pepcid] 20 mg PO DAILY #30 tab Aspirin 325 mg PO BIDCM #30 tab Senna/Docusate Sodium [Senokot-S] 2 tab PO BID #20 tab Primary Care Physician: Constantino Rodriguez [Primary Care Provider] - Please Follow Up With: Víctor Vásquez PA-C When: 07/09/17 @ 10:45 am
--- NOTE | 2017-06-27 13:55 | CASEMGMT ---
Social Work Note 1030 - Confirm that [facility] cannot accept and [facility] can. Update pt and Roberto who both would like to move forward with transfer. 1230 - R. DARVIN Vásquez, to unit and inform SW will need to obtain LOC for transfer and that Transfer summary is required. Once completed SW will fax LOC submission. PAS/RR completed in the [facility]. 1350 - Transfer summary completed. Faxed LOC submission to [facility]. Placed call to Jax Javier and left requesting an expedited approval. Notified [place] that the pt would not be returning. Faxed all discharge paperwork to [facility] and notified Sunita once SW hears back in regards to LOC SW will update and pt may transfer. SW to continue to follow and assist with discharge planning. Plan: [facility] for rehabilitation. PAS/RR completed and submitted in the [facility]. Transport to be setup. Benita Lenz, DOSIER OPERATOR, OCULAR CARE TECHNOLOGIST
[2017-06-27 14:13] VITALS: BP 165/87; PULSE 76; RESP 18; TEMP 37.3; O2SAT 98
[2017-06-27] MEDS: Lisinopril 2.5 MG Tablet PO (14:17)
--- NOTE | 2017-06-27 16:47 | CASEMGMT ---
Social Work Note Call back from Fabienne Javier confirming that a new LOC needed submitted. Inform Sunita at [facility] that LOC has been submitted and is waiting on approval from [facility]. Call from Jessica Silver with [facility] Preadmission review who states that we do not need a new LOC, but she does need the original PAS/RR submitted for long-term care. States can get this from [facility]. Inquires if pt was at [facility] from 2012 until her transfer to [facility] in 2017. Face to face with pt who confirms that she has been institutionalized since then. Call to Violette at [facility] requesting that she fax original PAS/RR and LOC approval to to fax to Jessica. Call from Jessica stating that she will approve and fax to shortly. LOC approved and faxed to Sunita at [facility]. Transport setup through [facility] via cot at [phone]. Placed call to Sunita at [phone] and left with transport time. RN and pt notified of discharge time. No additional needs identified at this time. Plan: [facility] for rehabilitation. PAS/RR submitted in the [facility]. Transport setup through [facility] via cot at [phone]. CAMILA GuamanW
--- NOTE | 2017-06-27 16:47 | CASEMGMT ---
Social Work Note
== END 2017-06-27 18:00 | disposition skilled nursing facility (03) | DRG 470 ==
PROVIDERS: Anesthesiology; Admitting Provider Specialist; Family Provider Family Medicine; PCP Family Medicine; Visit Provider Internal Medicine
PROC: 0SRD0J9 Replacement of Left Knee Joint with Synthetic Substitute, Cemented, Open Approach (ICD-10-PCS; CPT 27447; principal; 2017-06-25 10:45)
DX: M17.12 Unilateral primary osteoarthritis, left knee (principal); E05.90 Thyrotoxicosis, unspecified without thyrotoxic crisis or storm; E78.5 Hyperlipidemia, unspecified; K21.9 Gastro-esophageal reflux disease without esophagitis; F32.9 Major depressive disorder, single episode, unspecified; F41.9 Anxiety disorder, unspecified; Z96.651 Presence of right artificial knee joint; Z87.891 Personal history of nicotine dependence
CPT/HCPCS: 36415; 73560; 80048; 84443; 85027; 87641; 93971; 97110; 97116; 97162; 97166; 97530; 97535; 99251; J7120; A4216; G0463; J2405

== ENCOUNTER → 2017-10-15 17:06 | Outpatient (CLI) | payer MEDICARE, MEDICAID, SELFPAY ==
--- NOTE | 2017-10-15 17:10 | RAD_ITS ---
STUDY: X-RAY - LUMBAR SPINE REASON FOR EXAM: Female, 71 years old. Low back pain TECHNIQUE: 3 view(s) of the lumbar spine were obtained. COMPARISON: None FINDINGS: Normal lumbar lordosis. There is a mild levoscoliosis of the lumbar spine. There is a normal alignment of the vertebrae in the lateral view. There is diffuse demineralization with multi-level endplate spondylosis. There is multi-level degenerative disc disease with multi-level disc space narrowing. There is no demonstrated fracture. There is atherosclerotic calcification of the abdominal aorta without a demonstrated aneurysm. RAD/Lumbar Spine 2 or 3 Views IMPRESSION: Degenerative changes of the spine, as detailed above. Electronically Signed: Helio Orozco MD at 8:35 EDT , Service support ,
== END ==
PROVIDERS: Family Provider Family Medicine; PCP Family Medicine; Visit Provider Anesthesiology Pain Medicine
DX: M54.5 Low back pain (principal)
CPT/HCPCS: 72100

== ENCOUNTER → 2017-10-28 13:35 | Outpatient (CLI) | payer MEDICARE, MEDICAID, SELFPAY ==
--- NOTE | 2017-10-28 13:37 | MRI_ITS ---
STUDY: MRI LUMBAR SPINE WITHOUT CONTRAST REASON FOR EXAM: Female, 71 years old. Back pain and bilateral leg pain and weakness. TECHNIQUE: Standardized fat and water weighted pulse sequences were obtained in the sagittal and axial planes. COMPARISON: Radiograph October 15, 2017 and MR lumbar spine May 10, 2015 FINDINGS: T12-L1: Normal endplates. Normal disc height, hydration and morphology. Normal bilateral facet joints. Normal central canal and bilateral lateral recesses. Normal bilateral intervertebral neural foramina. Normal lumbar lordosis. There is no substantial scoliosis. Normal conus medullaris that terminates at the L1 level. L1-2: Central canal and neural foramina patent. L2-3: Moderate disc space narrowing and circumferential disc marginal osteophyte causing moderate narrowing of the neural foramina, right greater than left. Central thecal sac patent. L3-4: Moderate circumferential disc marginal osteophyte and moderately severe narrowing of the neural foramina bilaterally. Thecal sac patent. L4-5: Moderate circumferential disc marginal osteophyte causing moderate narrowing of the neural foramina bilaterally. Central thecal sac patent. L5-S1: Moderate disc space narrowing and circumferential disc marginal osteophyte causing severe narrowing of the neural foramina bilaterally, right greater than left. Normal visualized sacral ala. Normal visualized paraspinous soft tissue structures. Suprarenal abdominal aortic aneurysm measuring 3 to 4 cm in diameter. MRI/Spine Lumbar (Routine) IMPRESSION: Multilevel degenerative disc disease and neural foraminal narrowing. Abdominal aortic aneurysm. Recommend follow-up CTA abdomen and pelvis or abdominal ultrasound. Electronically Signed: Pepe Deng MD at 23:53 EDT , Service support ,
== END ==
PROVIDERS: Family Provider Internal Medicine; PCP Internal Medicine; Visit Provider Anesthesiology Pain Medicine
DX: M51.37 Other intervertebral disc degeneration, lumbosacral region (principal); M48.07 Spinal stenosis, lumbosacral region; I71.4 Abdominal aortic aneurysm, without rupture
CPT/HCPCS: 72148